=== PATIENT | male | born 1995 | race Hispanic/Latino ===

== ENCOUNTER → 2025-01-26 | Day surgery (SDC) | payer OTHER ==
[~2025-01-26] MED LIST: BUSPIRONE HCL5 MG PO; CELEXA20 MG PO; LIDOCAINE HCL 2% LOCAL INJ 5 ML SDV VIAL INJ ONE; MIDAZOLAM HCL 2 MG/2 ML VIAL ONE; PROPOFOL IV EMULSION 50 ML IV ONE; STRATTERA40 MG PO
[2025-01-26] MEDS: LACTATED RINGER'S 1,000 ML ONE (09:08)
[2025-01-26 11:00] VITALS: TEMP 98.7
[2025-01-26 12:00] VITALS: BP 117/81; PULSE 57; RESP 16; O2SAT 98
== END | disposition home or self-care (01) ==
LOC: OR 08:53
PROVIDERS: ATTEND Internal Medicine Gastroenterology
DX: K21.00 Gastro-esophageal reflux disease with esophagitis, without bleeding (principal); K44.9 Diaphragmatic hernia without obstruction or gangrene; Q43.8 Other specified congenital malformations of intestine; K64.1 Second degree hemorrhoids; K59.00 Constipation, unspecified; Z88.0 Allergy status to penicillin
CPT/HCPCS: 43239; 45378; J2003; J2250; J2704; J7121